=== PATIENT | male | born 2000 | race Two or more races ===

== ENCOUNTER 2024-03-13 14:40 | Emergency (ER) | payer OTHER ==
[~2024-03-13] VITALS: Ht 182.9 cm; Wt 81.0 kg
[2024-03-13 15:13] VITALS: TEMP 98.1; O2SAT 98
[2024-03-13] MEDS: ACETAMINOPHEN 325MG TABLET PO ONE (17:42)
[2024-03-13] MEDS: IBUPROFEN 400MG TABLET PO ONE (17:42)
[2024-03-13 17:46] VITALS: BP 127/73; PULSE 69; RESP 16; O2SAT 98
== END 2024-03-13 17:47 | disposition home or self-care (01) ==
LOC: ER 14:40
DX: S52.121A Displaced fracture of head of right radius, initial encounter for closed fracture (principal); V00.131A Fall from skateboard, initial encounter; Y93.51 Activity, roller skating (inline) and skateboarding; Y92.89 Other specified places as the place of occurrence of the external cause; Y99.8 Other external cause status
CPT/HCPCS: 73070; 73090; 99284; A4565